=== PATIENT | female | born 1955 | race Caucasian/White ===

== ENCOUNTER → 2016-08-28 | Outpatient (CLI) | payer BC ==
[~2016-08-28] MED LIST: MECL-124 PO; ONDA-42 SL; SCOP1PAT TD
--- OUTSIDE RECORDS SUMMARY | 2016-08-28 13:16 | XMS REPORT | Continuity of Care Document ---
Author Author [facility] Organization [facility] Address Unknown Phone Unavailable Care Team Providers Care Independent Freight Agent Name Role Phone PCP Unavailable Source Comments Some departments are not documenting in the electronic medical record. If you do not see the information that you expected, contact Release of Information in the Health Information Management department at [phone] for further assistance in locating additional records.[facility] Active Allergies and Adverse Reactions Not on File Current Medications Not on file Active Problems Not on file Social History Tobacco Use Types Packs/Day Years Used Date Never Assessed Plan of Care Health Maintenance Due Date Last Done Comments Physical (Comprehensive) 1964 Exam Pertussis Vaccine 1968 Tetanus Vaccine 1974 Cervical Cancer Screening 1978 Breast Cancer Screening 1997 Colorectal Cancer 2007 Screening Influenza Vaccine 04/15/2016 Hepatitis C Screening Completed 12/13/2006 Results from Last 3 Months Not on file
[2016-08-28 13:27] LABS: BASOPHILS # (AUTO) 0.1 10^3/uL (0.0-0.1); BASOPHILS % (AUTO) 1 % (0-10); EOSINOPHILS # (AUTO) 0.4 10^3/uL (0.0-0.3); EOSINOPHILS % (AUTO) 2 % (0-10); LYMPHOCYTES # (AUTO) 4.1 X 10^3 (1.0-4.0); LYMPHOCYTES % (AUTO) 26 % (12-44); MEAN CORPUSCULAR HEMOGLOBIN 31 PG (25-34); MEAN CORPUSCULAR HGB CONC 34 G/DL (32-36); MEAN CORPUSCULAR VOLUME 93 FL (80-99); MEAN PLATELET VOLUME 10.4 FL (7.4-10.4); MONOCYTES % (AUTO) 7 % (0-12); NEUTROPHILS # (AUTO) 9.9 X 10^3 (1.8-7.8); NEUTROPHILS % (AUTO) 64 % (42-75); PLATELET COUNT 385 10^3/uL (130-400); RED BLOOD COUNT 4.57 10^6/uL (4.35-5.85); WHITE BLOOD COUNT 15.5 10^3/uL (4.3-11.0)
[2016-08-28 13:53] LABS: ALANINE AMINOTRANSFERASE 23 U/L (0-55); ALBUMIN 4.4 G/DL (3.2-4.5); ANION GAP 11 MMOL/L (5-14); ASPARTATE AMINO TRANSFERASE 18 U/L (5-34); BILIRUBIN,TOTAL 0.4 MG/DL (0.1-1.0); BLOOD UREA NITROGEN 12 MG/DL (7-18); BUN/CREATININE RATIO 13; CALCIUM 9.9 MG/DL (8.5-10.1); CARBON DIOXIDE 26 MMOL/L (21-32); CHLORIDE 101 MMOL/L (98-107); CREATININE SERUM 0.91 MG/DL (0.60-1.30); GFR ESTIMATED > 60; GLUCOSE 95 MG/DL (70-105); POTASSIUM 4.3 MMOL/L (3.6-5.0); SODIUM 138 MMOL/L (135-145); TOTAL PROTEIN 7.6 G/DL (6.4-8.2); hs C REACTIVE PROTEIN 0.27 MG/DL (0.00-0.50)
[2016-09-03 11:00] LABS: MYCOPLASMA IGM IFA ANTIBODY <1:10 (<1:10)
[2016-09-03 11:01] LABS: MYCO INTER SEE FOOTNOTE
== END ==
LOC: LAB 13:12
DX: R05 Cough (principal); R53.83 Other fatigue; R53.1 Weakness
CPT/HCPCS: 36415; 80053; 85025; 86141; 86738

== ENCOUNTER → 2016-09-21 | Outpatient (CLI) | payer BC ==
--- OUTSIDE RECORDS SUMMARY | 2016-09-21 10:28 | XMS REPORT | Continuity of Care Document ---
Author Author [facility] Organization [facility] Address Unknown Phone Unavailable Care Team Providers Care Python Programmer Name Role Phone PCP Unavailable Source Comments Some departments are not documenting in the electronic medical record. If you do not see the information that you expected, contact Release of Information in the Health Information Management department at [phone] for further assistance in locating additional records.[facility] Active Allergies and Adverse Reactions Not [...]
--- NOTE | 2016-09-21 15:31 | Diagnostic Imaging Report ---
PA and lateral views of the chest Indication: Cough. History of smoking. Findings: The lungs are clear. The heart size is normal. There is no effusion or pneumothorax The mediastinum and temi appear unremarkable. Impression: Unremarkable study. Dictated by: Dictated on workstation # [id number]
[2016-09-21 16:16] LABS: BASOPHILS # (AUTO) 0.1 10^3/uL (0.0-0.1); BASOPHILS % (AUTO) 1 % (0-10); EOSINOPHILS # (AUTO) 0.5 10^3/uL (0.0-0.3); EOSINOPHILS % (AUTO) 4 % (0-10); LYMPHOCYTES # (AUTO) 2.4 X 10^3 (1.0-4.0); LYMPHOCYTES % (AUTO) 21 % (12-44); MEAN CORPUSCULAR HEMOGLOBIN 31 PG (25-34); MEAN CORPUSCULAR HGB CONC 34 G/DL (32-36); MEAN CORPUSCULAR VOLUME 93 FL (80-99); MEAN PLATELET VOLUME 11.3 FL (7.4-10.4); MONOCYTES # (AUTO) 1.2 X 10^3 (0.0-1.0); MONOCYTES % (AUTO) 11 % (0-12); NEUTROPHILS # (AUTO) 7.3 X 10^3 (1.8-7.8); NEUTROPHILS % (AUTO) 64 % (42-75); PLATELET COUNT 287 10^3/uL (130-400); RED BLOOD COUNT 4.45 10^6/uL (4.35-5.85); RED CELL DISTRIBUTION WIDTH 13.3 % (10.0-14.5); WHITE BLOOD COUNT 11.5 10^3/uL (4.3-11.0)
[2016-09-21 16:17] LABS: ERYTHROCYTE SEDIMENTATION RATE 10 MM/HR (0-30)
== END ==
LOC: RAD 10:24
PROVIDERS: ATTEND Family Medicine
DX: G93.3 Postviral and related fatigue syndromes (principal); F17.210 Nicotine dependence, cigarettes, uncomplicated
CPT/HCPCS: 36415; 71020; 82306; 84443; 85025; 85652

== ENCOUNTER → 2017-08-01 | Outpatient (CLI) | payer BC ==
[2017-08-01 15:37] LABS: ALANINE AMINOTRANSFERASE 33 U/L (0-55); ALBUMIN 4.5 GM/DL (3.2-4.5); ANION GAP 9 MMOL/L (5-14); ASPARTATE AMINO TRANSFERASE 24 U/L (5-34); BILIRUBIN,TOTAL 0.4 MG/DL (0.1-1.0); BLOOD UREA NITROGEN 14 MG/DL (7-18); BUN/CREATININE RATIO 17; CALCIUM 9.9 MG/DL (8.5-10.1); CARBON DIOXIDE 27 MMOL/L (21-32); CHLORIDE 102 MMOL/L (98-107); CREATININE SERUM 0.82 MG/DL (0.60-1.30); GFR ESTIMATED > 60; GLUCOSE 92 MG/DL (70-105); SODIUM 138 MMOL/L (135-145); TOTAL PROTEIN 8.1 GM/DL (6.4-8.2)
== END ==
LOC: LAB 14:53
PROVIDERS: ATTEND Family Medicine
DX: E55.9 Vitamin D deficiency, unspecified (principal)
CPT/HCPCS: 36415; 80053; 82306

== ENCOUNTER → 2018-08-28 | Outpatient (CLI) | payer BC ==
--- NOTE | 2018-08-28 11:59 | Diagnostic Imaging Report ---
Indication: Routine screening. Comparison is made with prior mammogram from 10/14/2008. 2-D and 3-D bilateral screening mammography was performed with CAD. Both breasts are heterogeneously dense, limiting the sensitivity of mammography. There are benign calcifications in both breasts. No dominant mass or malignant-appearing microcalcifications are seen. Axillae are unremarkable. Impression: BI-RADS category 2 No mammographic features suspicious for malignancy are identified. ACR BI-RADS Category 2: Benign findings. Result letter will be mailed to the patient. Note: At least 10% of breast cancer is not imaged by mammography. Dictated by: Dictated on workstation # [id number]
== END ==
LOC: RAD 09:03
PROVIDERS: ATTEND Nurse Practitioner Family
DX: Z12.31 Encounter for screening mammogram for malignant neoplasm of breast (principal)
CPT/HCPCS: 77067

== ENCOUNTER → 2022-09-17 | Outpatient (CLI) | payer BC, OTHER ==
--- NOTE | 2022-09-17 13:36 | Diagnostic Imaging Report ---
EXAMINATION: CT chest without contrast (lung screening). TECHNIQUE: Multiple contiguous axial images were obtained through the chest without the use of intravenous contrast according to lung cancer screening protocol. All CT scans use one or more of the following dose optimizing techniques: automated exposure control, MA and/or KvP adjustment based on patient size and exam type or iterative reconstruction. HISTORY: 26.5 pack year history of smoking. COMPARISON: None available. FINDINGS: Thyroid: The thyroid is normal. Mediastinum: Heart size is normal without significant pericardial effusion. Calcifications of the aorta and coronary vessels. Thoracic aorta is normal in caliber. There is some soft tissue within the anterior mediastinum which represents residual thymus. There are a few scattered prominent mediastinal lymph nodes which are not pathologically enlarged. The largest within the anterior mediastinum measures 0.7 x 0.8 cm. Lungs and airways: The lungs are clear without consolidation, pleural effusion, or pneumothorax. There is a left upper lobe pulmonary nodule measuring up to 0.3 x 0.3 cm on (series 2 image 107). The airways are normal. Upper abdomen: The subphrenic structures are normal. Musculoskeletal: No suspicious osseous lesion or compression fracture. IMPRESSION: 1. A 0.3 cm left upper lobe pulmonary nodule. No other suspicious pulmonary lesion. Recommend continued annual low-dose CT screening. LUNG-RADS CATEGORY: 2 MODIFIER: None Dictated by: Dictated on workstation # [id number]
== END ==
LOC: RAD 11:57
PROVIDERS: ATTEND Family Medicine
DX: Z12.2 Encounter for screening for malignant neoplasm of respiratory organs (principal); R91.1 Solitary pulmonary nodule
CPT/HCPCS: 71271

== ENCOUNTER 2022-10-27 06:07 | Outpatient (CLI) | payer MEDICARE ==
[~2022-10-27] VITALS: Ht 152.4 cm; Wt 52.6 kg
== END 2022-10-27 13:35 | disposition home or self-care (01) ==
LOC: PREOP 06:07
PROVIDERS: ATTEND Surgery
DX: Z01.818 Encounter for other preprocedural examination (principal); Z12.11 Encounter for screening for malignant neoplasm of colon; K21.9 Gastro-esophageal reflux disease without esophagitis

== ENCOUNTER 2022-11-09 10:07 | Day surgery (SDC) | payer MEDICARE ==
[~2022-11-09] VITALS: Ht 152.4 cm; Wt 52.6 kg
[2022-11-09] MEDS ORDERED: LACTATED RINGERS 1,000 ML IV STA (10:12)
[2022-11-09 10:32] VITALS: BP 144/73
[2022-11-09] MEDS ORDERED: HURRICAINE EXT TUBE (BENZOCAINE) ONE (10:53)
[2022-11-09] MEDS ORDERED: PROPOFOL INJECTION 50 ML IV ONE (11:03)
[2022-11-09] MEDS ORDERED: proPOfol 200 MG/20 ML (DIPRIVAN) VIAL IV ONE (11:03)
[2022-11-09] MEDS ORDERED: PANT40TA2 PO (11:04)
--- NOTE | 2022-11-09 11:04 | Discharge Inst-Simple/Standard ---
Discharge Inst-Standard Discharge Medications New, Converted or Re-Newed RX: Transmitted to Pharmacy Patient Instructions/Follow Up Plan of Care/Instructions/FU: 2 weeks Lolita Activity as Tolerated: Yes Discharge Diet: Regular Diet (high fiber ) MARVIN QUICK DO Nov 09, 2022 11:04
[2022-11-09 11:05] VITALS: BP 107/57
--- NOTE | 2022-11-09 11:07 | Progress Note-Post Operative ---
Post-Operative Progess Note Surgeon (s)/Tree Care Foreman (s) Surgeon MARVIN QUICK DO Tree Care Foreman: na Pre-Operative Diagnosis Screening colonoscopy and GERD Post-Operative Diagnosis Hiatal Hernia Diverticulosis Colon Polyps Procedure & Operative Findings Date of Procedure 11/09/22 Procedure Performed/Findings EGD with biopsies x 2 Colonoscopy with hot biopsy polypectomy x 3 Anesthesia Type per automation control integrator Estimated Blood Loss Estimated blood loss (mL): none Specimens/Packing Specimens Removed Antrum x 1 GE junction x 1 Colon polyps x 3 MARVIN QUICK DO Nov 09, 2022 11:07
[2022-11-09 11:10] VITALS: BP 110/60
[2022-11-09 11:30] VITALS: BP 112/58
--- NOTE | 2022-11-09 12:17 | Anesthesia-General Post-Op ---
MAC Patient Condition Mental Status/LOC: Same as Preop Cardiovascular: Satisfactory Nausea/Vomiting: Absent Respiratory: Satisfactory Pain: Controlled Complications: Absent Post Op Complications Complications None Follow Up Care/Instructions Patient Instructions None needed. Anesthesiology Discharge Order Discharge Order Patient is doing well, no complaints, stable vital signs, no apparent adverse anesthesia problems. No complications reported per nursing. REILLY GARZA CRNA Nov 09, 2022 12:17
--- NOTE | 2022-11-09 17:21 | OPERATIVE REPORT ---
DATE OF SERVICE: 11/09/2022 PREOPERATIVE DIAGNOSES: Gastroesophageal reflux disease and screening colonoscopy. POSTOPERATIVE DIAGNOSES: Hiatal hernia, colon polyps, diverticulosis. PROCEDURES: EGD with biopsies, colonoscopy with hot biopsy polypectomy x3. SURGEON: Marvin Mchugh DO ANESTHESIA: Per CHICKEN AND FISH BUTCHER. ESTIMATED BLOOD LOSS: None. COMPLICATIONS: None. INDICATIONS: The patient is a 67-year-old female, needing EGD and colonoscopy. She understands risks and benefits of procedure and wished to proceed. Consent was signed in chart. DESCRIPTION OF PROCEDURE: The patient was taken to endoscopy suite, placed in left lateral recumbent position. Timeout was performed. Scope was inserted in the mouth, down the esophagus, stomach and the duodenum without difficulty. There were no polyps, masses or ulcerations within the duodenum. Scope was slowly retracted back into stomach where it was further insufflated. No polyps, masses or ulcerations. Scope was retroflexed noting a hiatal hernia, no other pathology. Scope was returned to its normal position, slowly withdrawn until distal esophagus, which had some questionable changes of reflux esophagitis. Biopsy of GE junction was obtained. Scope was slowly retracted back until completely removed. Digital rectal exam was performed. No palpable polyps, masses or ulcerations. Scope was inserted in the rectum, advanced all the way to the cecum with minimal difficulty. Prep was adequate. Scope was slowly retracted back. No polyps, masses or ulcerations in the cecum, ascending colon. In the transverse colon, a polyp was present, which hot biopsy polypectomy was performed. Scope was then continuously retracted back. No polyps, masses or ulcerations in the sigmoid, but there was some diverticulosis present. Once in the rectum, 2 small polyps were present, which hot biopsy polypectomies were performed. Scope was retroflexed noting no other pathology. Scope was returned to its normal position, slowly withdrawn until completely removed. The patient tolerated the procedure well, no complications, taken to recovery room in stable condition. RECOMMENDATIONS: The patient will repeat colonoscopy in 5 years. Any issues before that, be seen at that time. We will recommend high fiber diet due to diverticulosis. We will also start Protonix 40 mg daily to see if this helps with any of her symptoms. She will follow up in 2 weeks. Job ID: [id number] DocumentID: [id number] Dictated Date: 11/09/2022 11:06:56 Electric Track Switch Maintainer Date: 11/09/2022 17:19:00 Dictated By: MARVIN MCHUGH DO
== END 2022-11-09 11:45 | disposition home or self-care (01) ==
LOC: ENDO 10:07
PROVIDERS: ATTEND Surgery
DX: Z12.11 Encounter for screening for malignant neoplasm of colon (principal); K63.5 Polyp of colon; K62.1 Rectal polyp; K29.50 Unspecified chronic gastritis without bleeding; B96.81 Helicobacter pylori [H. pylori] as the cause of diseases classified elsewhere; K57.30 Diverticulosis of large intestine without perforation or abscess without bleeding; K44.9 Diaphragmatic hernia without obstruction or gangrene; K21.00 Gastro-esophageal reflux disease with esophagitis, without bleeding; F17.210 Nicotine dependence, cigarettes, uncomplicated; Z80.0 Family history of malignant neoplasm of digestive organs; Z28.311 Partially vaccinated for COVID-19
CPT/HCPCS: 88305

== ENCOUNTER → 2022-12-08 | Outpatient (CLI) | payer MEDICARE ==
[~2022-12-08] MED LIST changes: +PANT40TA2 PO
--- NOTE | 2022-12-08 10:17 | Diagnostic Imaging Report ---
PROCEDURE: US Gallbladder. TECHNIQUE: Multiple real-time grayscale images were obtained over the right upper quadrant in various projections. INDICATION: Right upper quadrant pain. Liver is normal in size at 16.5 cm. Portal vein is patent and shows normal direction of flow. No liver mass is detected. Gallbladder is without stones or sludge. There is no wall thickening or biliary duct dilatation. Pancreas is unremarkable. Visualized proximal aorta is nonaneurysmal. The IVC is patent. Right kidney is without calculi or hydronephrosis. There is no ascites. IMPRESSION: Unremarkable gallbladder ultrasound. There is no evidence of cholelithiasis or acute cholecystitis. Dictated by: Dictated on workstation # [id number]
== END ==
LOC: RAD 09:17
PROVIDERS: ATTEND Surgery
DX: R10.11 Right upper quadrant pain (principal)
CPT/HCPCS: 76705

== ENCOUNTER 2022-12-23 10:26 | Outpatient (RCR) | payer MEDICARE ==
[~2022-12-23 10:26] MED LIST changes: +CATHETER FLUSH 10 ML SYR IVP PRN
--- NOTE | 2022-12-23 12:36 | Diagnostic Imaging Report ---
INDICATION: Right upper quadrant pain. Patient was administered 5.2 mCi technetium 99m Choletec intravenously and imaging over the abdomen was performed. At 60 minutes patient ingested 8 ounces of ensure the gallbladder ejection fraction was calculated. There is homogeneous uptake of activity by the liver with prompt excretion of activity into the common duct and gallbladder. There is normal passage of activity into the small bowel. Gallbladder ejection fraction is low at 19%. Normal values are 35% or greater. IMPRESSION: 1. Patent cystic duct and common bile duct. 2. Low gallbladder ejection fraction of 19%. Dictated by: Dictated on workstation # [id number]
[2023-01-06] MEDS ORDERED: DOCU-143 PO (10:01)
[2023-01-06] MEDS ORDERED: ACHD5005 PO (10:01)
== END 2023-01-12 | disposition home or self-care (01) ==
LOC: CARD 10:26
PROVIDERS: ATTEND Nurse Practitioner
DX: R10.11 Right upper quadrant pain (principal); Z86.19 Personal history of other infectious and parasitic diseases
CPT/HCPCS: 78227; 87338; A9537; 36415

== ENCOUNTER 2023-01-03 05:35 | Outpatient (CLI) | payer MEDICARE ==
[~2023-01-03] VITALS: Ht 152.4 cm; Wt 52.2 kg
[~2023-01-03 05:35] MED LIST changes: -CATHETER FLUSH 10 ML SYR IVP PRN
[2023-01-06] MEDS ORDERED: DOCU-143 PO (10:01)
[2023-01-06] MEDS ORDERED: ACHD5005 PO (10:01)
== END 2023-01-03 11:00 | disposition home or self-care (01) ==
LOC: PREOP 05:35
PROVIDERS: ATTEND Surgery
DX: Z01.818 Encounter for other preprocedural examination (principal)

== ENCOUNTER 2023-01-06 07:26 | Day surgery (SDC) | payer MEDICARE ==
[~2023-01-06] VITALS: Ht 152 cm; Wt 52.2 kg
[2023-01-06] VITALS (12 sets, daily range): BP systolic 96–133; BP diastolic 50–62
[2023-01-06] MEDS ORDERED: ceFAZolin INJECTION 2,000 MG in NS (IVPB) 50 ML IV ONE (07:30)
[2023-01-06] MEDS ORDERED: BUP/EPI 0.5% 1:200,000 (SENSORCAINE) 30 ML VIAL ONE (07:43)
[2023-01-06] MEDS: LACTATED RINGERS 1,000 ML IV PRN ×2 (07:50→09:30)
[2023-01-06] MEDS ORDERED: ONDANSETRON 4 MG/2 ML (SDV) Z0FRAN ONE (07:57)
[2023-01-06] MEDS ORDERED: LIDOCAINE PF 2% 5 ML (XYLOCAINE) VIAL ONE (07:57)
[2023-01-06] MEDS ORDERED: SEVOFLURANE (ULTANE) 15 ML INHAL SOLN ONE ×2 (07:57→09:07)
[2023-01-06] MEDS ORDERED: proPOfol 200 MG/20 ML (DIPRIVAN) VIAL IV ONE (07:57)
--- NOTE | 2023-01-06 07:57 | Progress Note-Pre Operative ---
Pre-Operative Progress Note Date H&P Reviewed: January 06, 2023 Time H&P Reviewed: 07:57 History & Physical: H&P Reviewed, Patient Examed, No changes noted Pre-Operative Diagnosis: biliary dyskinesia MARVIN QUICK DO January 06, 2023 07:57
[2023-01-06] MEDS ORDERED: ROCURONIUM 50 MG/5 ML (ZEMURON) VIAL IV ONE (07:58)
[2023-01-06] MEDS ORDERED: fentaNYL INJ 100 MCG/2 ML AMP ONE (07:58)
[2023-01-06] MEDS ORDERED: MIDAZOLAM 2 MG/2 ML (VERSED) VIAL ONE (07:58)
[2023-01-06] MEDS ORDERED: PHENYLEPHRINE 100 MCG/ML 10 ML (ANESTHESIA) SYR ONE (09:04)
[2023-01-06] MEDS ORDERED: BUP/EPI 0.5% 1:200,000 (SENSORCAINE) 30 ML VIAL INJ ONE (09:22)
[2023-01-06] MEDS ORDERED: IOHEXOL 300 MG/ML 30 ML (OMNIPAQUE 300) VIAL IV ONE (09:23)
[2023-01-06] MEDS ORDERED: GLYCOPYRROLATE 0.2 MG/ML (ROBINUL) 2 ML VIAL ONE (09:46)
[2023-01-06] MEDS ORDERED: NEOSTIGMINE (BLOXIVERZ ) 1 MG/1ML 10 ML VIAL ONE (09:46)
[2023-01-06] MEDS ORDERED: morphine INJ 10 MG/ML 1ML (SYR OR VIAL) IVP ONE (10:00)
[2023-01-06] MEDS ORDERED: ONDANSETRON 4 MG/2 ML (SDV) Z0FRAN IVP PRN (10:00)
[2023-01-06] MEDS ORDERED: MEPERIDINE (DEMEROL) INJ 50 MG/ML IVP ONE (10:00)
[2023-01-06] MEDS ORDERED: fentaNYL INJ 100 MCG/2 ML AMP IVP ONE (10:00)
[2023-01-06] MEDS ORDERED: ACHD5005 PO (10:01)
[2023-01-06] MEDS ORDERED: DOCU-143 PO (10:01)
--- NOTE | 2023-01-06 10:04 | Discharge Inst-Simple/Standard ---
Discharge Inst-Standard Discharge Medications New, Converted or Re-Newed RX: Transmitted to Pharmacy Patient Instructions/Follow Up Plan of Care/Instructions/FU: 2 weeks Lolita Activity as Tolerated: No Discharge Diet: Regular Diet Other Inst to Patient Follow up Appt: Make appointment for 2 weeks. Instructions: No lifting greater than 10 pounds. No strenuous activity. May shower in 24 hours, no tub bath or soaking. Use incentive spirometer at home as directed. No Smoking Skin/Wound Care: You have special glue over incision, it will fall off on it's own. Symptoms to Report: Appetite Changes, Extremity Discoloration, Numbness/Tingling, Swelling Increased, Bleeding Excessive, Eyesight Changes, Pain Increased, Urine Color Change, Constipation(Persistent), Fever over 101 degree F, Pain/Pressure in chest, Urinating Difficulty, Cough Up/Vomit Blood, Heart Beat Irreg/Pounding, Pain/Pressure in jaw, Vaginal Bleeding Increase, Cramps in feet or legs, Lightheadedness, Pain/Pressure in shoulder, Diarrhea(Persistent), Memory Changes Suddenly, Questions/Concerns, Weight gain consecutive days, Dizziness/Fainting, Nausea/Vomiting, Shortness of Breath, Weight gain over 2 pounds. If eyes or skin turn yellow notify physician. If questions or concerns contact your physician Or seek help at emergency department. MARVIN QUICK DO January 06, 2023 10:04
--- NOTE | 2023-01-06 10:05 | Progress Note-Post Operative ---
Post-Operative Progess Note Surgeon (s)/Animal Rides Manager (s) Surgeon MARVIN QUICK DO Animal Rides Manager: Dr. Melvin to assist in retraction dissection and closure. Pre-Operative Diagnosis biliary dyskinesia Post-Operative Diagnosis same Procedure & Operative Findings Date of Procedure 01/06/23 Procedure Performed/Findings PROCEDURE: Laparoscopic cholecystectomy with intraoperative cholangiogram. COMPLICATIONS: None. PROCEDURE: The patient was taken to the operating suite and was prepped and draped in sterile fashion. A surgical pause was performed. Just superior to the umbilicus, a 12 mm incision was made. Dissection was taken down to the fascia, which was then scored and grasped with a Brittni and the abdomen was then entered. A 0 Vicryl suture was placed in a [id number] fashion and a Hobbs trocar was placed and secured. Pneumoperitoneum was achieved. A 5mm trochar place in the subxyphoid and 2 in the right upper quadrant. The gallbladder was then grasped and elevated. The cystic duct, and cystic artery were then dissected out. Clip was placed on the distal portion of the cystic duct which was then partially transected. An arrow catheter was inserted into the duct. The cholangiogram was then performed. No filing defects and contrast made its way into the duodenum. Catheter removed. Clips were placed on proximal portion of the cystic duct and then the duct was then transected. Clips were placed along the proximal and distal portion of the cystic artery which was then transected. Hook cautery was used to dissect the gallbladder from the gallbladder fossa achieving hemostasis. The gallbladder was placed in an Endobag and removed through the 12 mm trocar site. The abdomen was then reinspected. Copious amounts of irrigation were used to irrigate the abdomen and there were no signs of active bleeding. Hemostasis had been achieved. The 12 mm fascial defect was then closed with 0 Vicryl suture that had been placed in a [id number]-[id number] fashion. The abdomen was then desufflated, the trocars were removed. The abdomen was then washed and dried. The skin was then closed using 4-0 Monocryl in a subcuticular fashion. The abdomen was washed and dried and Skin Affix was place over incisions. Patient tolerated the procedure well without any complications and was taken to the recovery room in stable condition. Anesthesia Type general Estimated Blood Loss Estimated blood loss (mL): minimal Specimens/Packing Specimens Removed gallbladder MARVIN QUICK DO January 06, 2023 10:05
--- NOTE | 2023-01-06 15:25 | Diagnostic Imaging Report ---
INDICATION: Cholecystectomy. EXAMINATION: Operative cholangiogram performed in the routine fashion. 16.7 seconds of fluoroscopy time was used. 99 images were obtained. FINDINGS: Contrast injection demonstrates mild prominence of the common duct without evidence of obstruction. Contrast passes to the duodenum. There is some reflux of contrast noted in the pancreatic duct. IMPRESSION: Unremarkable operative cholangiogram. Dictated by: Dictated on workstation # [id number]
== END 2023-01-06 12:55 | disposition home or self-care (01) ==
LOC: SDC 07:26
PROVIDERS: ATTEND Surgery
DX: K81.1 Chronic cholecystitis (principal); K82.8 Other specified diseases of gallbladder; F17.210 Nicotine dependence, cigarettes, uncomplicated; Z90.5 Acquired absence of kidney; Z28.311 Partially vaccinated for COVID-19; Z86.19 Personal history of other infectious and parasitic diseases
CPT/HCPCS: 76000; 87081; 88304; 94664